=== PATIENT | male | born 1960 | race Caucasian/White ===

== ENCOUNTER 2024-01-25 08:44 | Emergency (ER) | payer MEDICARE, SELFPAY ==
[2024-01-25 08:59] VITALS: BP 143/89
[2024-01-25 09:05] VITALS: BMI 21.1
[2024-01-25 09:06] VITALS: BP 141/92
--- NOTE | 2024-01-25 09:13 | ED.GENMED ---
History of Present Illness
General
Chief Complaint: Abdominal Symptoms
Time Seen by Provider: 01/25/24 09:05
History of Present Illness
History of Present Illness:
63 yo male w/ hx of HTN, pulmonary HTN, HIV on HAART, and CKD presents to the Emergency Department for evaluation of lower abd pain x 3 days. Pain predominantly present at nighttime when lying down. Minimal discomfort currently. Describes and aching
discomfort in the lower abd bilaterally. Notes increased frequency of BM but no diarrhea or hematochezia. Also reports a weak urine stream w/o dysuria or hematuria. No fevers, chills, sweats, N/V. No prior abd surgeries.
Past History
Past History
ED Past Medical History: Renal failure and Other (HIV, pulmonary hypertension)
Social History
Tobacco: Non-smoker
Alcohol: Occasional
Personal: Partner
Family History
Family History: Negative Diabetes, Hypertension or CAD
Review of Systems
Review of Systems
Allergies reviewed?: Yes
All Other Systems: ROS reviewed and negative except as documented in HPI and ROS
Phy Exam
Physical Exam
Physical Exam:
GEN: Well appearing, NAD, WDWN
Eyes: PERRLA, EOMs intact, no scleral icterus
HENT: NCAT, oral mucosa moist
Lungs: CTAB, no wheezes, rales, rhonchi, normal chest wall excursion
Cardiac: RRR, no M/R/G, no peripheral edema. Radial pulses 2+ bilat
Abdomen: S, NT, ND, NABS, no masses or hepatosplenomegaly
Neuro: AO x 3
MSK: No gross deformity or ecchymosis. No edema. No digital clubbing
Skin: No rashes, petechiae. Normal color, no pallor or jaundice.
Psych: Calm, cooperative, proper hygiene
Course
Orders/Labs/Results
Orders:
Orders
01/25/24 09:08
Complete Blood Count/With Diff Urgent
Comprehensive Metabolic Panel Urgent
Lipase Urgent
01/25/24 09:13
Bladder Scan- Treatment ONCE
Comment: post void
01/25/24 10:16
Urinalysis Reflex To Culture Urgent
Date Specimen was Collected: 01/25/24
Time Specimen was Collected: 09:25
Urine Microscopic Reflex Cult Urgent
Urine Culture Urgent
JOHN Source: U
Specimen Description:
Date Specimen was Collected: 01/25/24
Time Specimen was Collected: :25
01/25/24 11:43
CT Abd/pel Without Iv Or Oral Urgent
Comment:
Reason For Exam: lower abd pain
01/25/24 14:25
Add On - Microbiology Urgent
Tests Added?: urine culture
Abnormal Lab Results
01/25/24 01/25/24
09:08 10:16
Hgb 20.0 H g/dL
(13.0-18.0)
Hct 55.5 H %
(39.0-52.0)
MCV 99.6 H fL
(80.0-94.0)
MCH 35.9 H pg
(27.0-31.0)
MPV 10.5 H fL
(7.4-10.4)
Absolute Monos (auto) 0.8 H 10^3/uL
(0.1-0.6)
Monocytes % 9.4 H %
(1.7-9.3)
Chloride 109 H mmol/L
(98-107)
Carbon Dioxide 18 L mmol/L
(22-30)
BUN 35 H mg/dl
(9-20)
Creatinine 2.9 H mg/dL
(0.7-1.3)
Glucose 100 H mg/dl
(70-99)
Urine Ketones Trace A
(Negative)
Ur Occult Blood Reflex 2+ A
(Negative)
Urine RBC 16-20 A /HPF
(0-2)
Urine Bacteria (Reflex) Few A
(Negative)
Urine Albumin (Reflex) 1+ A
(Neg - Trace)
01/25/24 09:08
01/25/24 09:08
Vital Signs
Initial and Last Documented VS:
Initial Vital Signs
Temp Pulse Resp BP Pulse Ox
98.6 F 102 16 143/89 98
01/25/24 08:59 01/25/24 08:59 01/25/24 08:59 01/25/24 08:59 01/25/24 08:59
Last Documented Vital Signs
Temp Pulse Resp BP Pulse Ox
98.6 F 70 12 157/99 94
01/25/24 08:59 01/25/24 14:15 01/25/24 14:15 01/25/24 13:45 01/25/24 14:15
MDM/Problems Addressed
MDM/Problems Addressed:
63-year-old male presents with intermittent lower abdominal pain. Workup does not reveal an obvious source of symptoms however given presence of bacteriuria with signs of ascending UTI on CT imaging, will treat this as a potential UTI in the
setting of chronic urinary retention. Postvoid residual shows greater than 150 mL, unlikely that alpha blockers will be of benefit, particularly would like to avoid this in the setting of the patient's medications for pulmonary arterial
hypertension. He is also noted to have polycythemia vera, last hemoglobin 2 weeks ago on outpatient labs was 19.1. Recommend he continue to follow-up with his security controls assessor and key account executive to discuss the significance of this finding as it is
likely related to his new medications. Start the patient on antibiotics, urine culture pending
*Critical Care Note
Total Time (30-74mins, 75-104mins- exclusive of procedures): Not Applicable
ED Attending Note
-
Portions of this chart may have been created with voice recognition software.� Occasional wrong word or��sound alike� substitutions may have occurred due to the inherent limitations of voice recognition software.
Discharge Plan
Departure
Patient Disposition: Home (Routine Discharge)
Date of Disposition: 01/25/24
Time of Disposition: 14:21
Patient with high blood pressure during this ER visit?: No
Discharge Problem:
Abdominal pain, lower
Instructions: Abdominal Pain
Prescriptions:
New
cephalexin 500 mg capsule
500 mg PO BID Qty: 14 0RF
No Action
diazepam 5 MG tablet
5 mg PO TIDPRN PRN (Reason: anxiety)
multivitamin with folic acid [Tab-A-Prashant] 1 TABLET tablet
1 tab PO DAILY
hydralazine 25 mg Tablet
25 mg PO BID
sildenafil (pulm.hypertension) 20 mg Tablet
20 mg PO TID
ambrisentan [Letairis] 10 mg Tablet
10 mg PO NOON
Triumeq 600-50-300 mg Tablet
1 tab PO HS
sodium bicarbonate 650 MG tablet
1,300 mg PO BID
Referrals:
Zane Baum DO [Family Provider] -
Activity Restrictions/Additional Instructions:
The cause of her symptoms not clear however small intestines, typically if you have infection for small intestine using her vomiting and diarrhea. Additionally there is inflammation of the kidneys small amount of bacteria in the urine, although not
strongly indicative of urinary tract infection we will treat this with antibiotics for 7 days
Interventions
Interventions:
*Risk Screen - Suicide Last Done: 01/25/24 09:05
*General Assessment Last Done: 01/25/24 09:05
*Neglect/Abuse Screening Last Done: 01/25/24 09:05
ED- Fall Risk Assessment Last Done: 01/25/24 11:00
*ED COVID-19 Vaccine History Last Done: 01/25/24 09:05
*Nursing Disposition Last Done: 01/25/24 14:35
PA-Eblbzu-Wsrfygarfz Assessment Last Done: 01/25/24 09:05
Discharge Date and Time
Discharge Date/Time: 01/25/24 14:37
Print Language: MALAY
[2024-01-25 09:44] LABS: ALT (SGPT) 16 U/L (0-50); AST (SGOT) 24 U/L (17-59); Albumin 4.6 g/dl (3.5-5.0); Alkaline Phosphatase 102 U/L (38-126); Blood Urea Nitrogen 35 mg/dl (9-20); Calcium 9.1 mg/dl (8.4-10.2); Carbon Dioxide 18 mmol/L (22-30); Chloride 109 mmol/L (98-107); Estimated Creatinine Clearance 21 ml/min; Glucose 100 mg/dl (70-99); Potassium 4.1 mmol/L (3.5-5.1); Sodium 142 mmol/L (135-145); Total Bilirubin 0.9 mg/dl (0.2-1.3); Total Protein 6.9 g/dl (6.3-8.2); eGFR 23.28
[2024-01-25 09:49] LABS: Lipase 160 U/L (23-300)
[2024-01-25 10:07] LABS: % Basophils 0.6 % (0-2); % Eosinophils 0.5 % (0-6); % Immature Granulocytes 0.5 % (0-0.5); % Lymphocytes 34.5 % (20.5-51.1); % Monocytes 9.4 % (1.7-9.3); % Neutrophils 54.5 % (42.2-75.2); Absolute Basophils 0.1 10^3/uL (0-0.2); Absolute Lymphocytes 2.8 10^3/uL (1.2-3.4); Absolute Monocytes 0.8 10^3/uL (0.1-0.6); Absolute Neutrophils 4.4 10^3/uL (1.4-6.5); Hematocrit 55.5 % (39.0-52.0); Mean Corpuscular Hgb 35.9 pg (27.0-31.0); Mean Corpuscular Volume 99.6 fL (80.0-94.0); Mean Platelet Volume 10.5 fL (7.4-10.4); Nucleated Red Blood Cells % 0 % (-); Platelet Count 161 10^3/uL (130-400); Red Blood Cell Count 5.57 10^6/uL (4.70-6.10)
[2024-01-25 10:51] LABS: Urine Albumin 1+ (Neg - Trace); Urine Bilirubin Negative (Negative); Urine Character Clear (Clear); Urine Color Yellow; Urine Glucose Negative (Negative); Urine Ketone Trace (Negative); Urine Leukocyte Negative (Negative); Urine Nitrite Negative (Negative); Urine Occult Blood 2+ (Negative); Urine Urobilinogen Negative (Neg - 1+)
[2024-01-25 11:00] VITALS: BP 145/89
[2024-01-25 12:14] LABS: Urine Bacteria Few (Negative); Urine Red Blood Cell 16-20 /HPF (0-2)
[2024-01-25 13:45] VITALS: BP 157/99
== END 2024-01-25 14:37 | disposition home or self-care (01) ==
LOC: EMR 08:44
PROVIDERS: Emergency Medicine; Physician Assistant; EMERGENCY PHYSICIAN Emergency Medicine; FAMILY PHYSICIAN Family Medicine
DX: R10.30 Lower abdominal pain, unspecified (principal); I27.20 Pulmonary hypertension, unspecified; I12.9 Hypertensive chronic kidney disease with stage 1 through stage 4 chronic kidney disease, or unspecified chronic kidney disease; N18.9 Chronic kidney disease, unspecified; Z21 Asymptomatic human immunodeficiency virus [HIV] infection status
CPT/HCPCS: 99284; 74176; 80053; 81003; 81015; 83690; 85025; 87086